=== PATIENT | female | born 1965 | race Caucasian/White ===

== ENCOUNTER 2016-11-30 11:35 | Emergency (ER) | payer OTHER ==
--- NOTE | 2016-11-30 11:44 | PDOC ---
History of Present Illness - General Chief Complaint: Respiratory Stated Complaint: COUGH, COLD SX Time Seen by Provider: 11/30/16 11:40 History Source: Patient Exam Limitations: No Limitations - History of Present Illness Initial Comments: 11/30/16 11:40 The patient is a 51-year-old female, with no significant past medical history, who presents to the emergency department with 3 days of dry cough, clear rhinorrhea, mild sore throat, subjective fever. She denies dyspnea on exertion , dyspnea at rest, orthopnea, lower extremity edema. She denies chest pain, back pain. She denies nausea, vomiting, diarrhea. Past History - Past Medical History Allergies/Adverse Reactions: Allergies Allergy/AdvReac Type Severity Reaction Status Date / Time No Known Allergies Allergy Unverified 11/30/16 11:41 Home Medications: Ambulatory Orders Benzonatate [Tessalon Pearls -] 100 mg PO TID PRN #21 capsule 11/30/16 Gabapentin 300 mg PO HS 11/30/16 Loratadine [Claritin -] 10 mg PO DAILY #7 tablet 11/30/16 Risedronate Sodium 35 mg PO WEEKLY 11/30/16 Review of Systems - Review of Systems Comments:: 11/30/16 11:41 CONSTITUTIONAL: Present: See history of present illness Absent: chills, fatigue EYES: Absent: visual changes ENT: Absent: ear pain, sore throat CARDIOVASCULAR: Absent: chest pain, palpitations, loss of consciousness RESPIRATORY: Present: Cough Absent: SOB GI: Absent: abdominal pain, nausea, vomiting, constipation, diarrhea GENITOURINARY: Absent: dysuria, frequency, hematuria MUSKULOSKELETAL: Absent: back pain, arthralgia, myalgia SKIN: Absent: rash NEURO: Absent: headache, dizziness *Physical Exam - Physical Exam Comments: 11/30/16 11:41 GENERAL: Well developed, well nourished. Awake and alert. No acute distress. HEENT: Normocephalic, atraumatic. PERRLA, EOMI. No conjunctival pallor. Sclera are non- icteric. Moist mucous membranes. Oropharynx is clear. NECK: Supple. Full ROM. No JVD. Carotid pulses 2+ and symmetric, without bruits. No thyromegaly. No lymphadenopathy. CARDIOVASCULAR: Regular rate and rhythm. No murmurs, rubs, or gallops. Distal pulses are 2+ and symmetric. PULMONARY: No evidence of respiratory distress. Lungs clear to auscultation bilaterally. No wheezing, rales or rhonchi. ABDOMINAL: Soft. Non-tender. Non-distended. No rebound or guarding. No organomegaly. Normoactive bowel sounds. MUSCULOSKELETAL Normal range of motion at all joints. No bony deformities or tenderness. No CVA tenderness. EXTREMITIES: No cyanosis. No clubbing. No edema. No calf tenderness. SKIN: Warm and dry. Normal capillary refill. No rashes. No jaundice. NEUROLOGICAL: Alert, awake, appropriate. Cranial nerves 2-12 intact. No deficits to light touch and temperature in face, upper extremities and lower extremities. No motor deficits in the in face, upper extremities and lower extremities. Normoreflexic in the upper and lower extremities. Normal speech. Toes are down- going bilaterally. Gait is normal without ataxia. PSYCHIATRIC: Cooperative. Good eye contact. Appropriate mood and affect. Medical Decision Making - Medical Decision Making 11/30/16 11:42 The patient is well-appearing and in no acute distress Vitals noted There is no clinical evidence of pneumonia She is outside the window for treatment with Tamiflu She does not have high risk factors for influenza Clinical impression: Upper respiratory tract infection Cough I discussed the physical exam findings, ancillary test results and final diagnoses with the patient. I answered all of the patient's questions. The patient was satisfied with the care received and felt comfortable with the discharge plan and treatment plan. The patient will call their primary care physician within 24 hours to arrange follow-up and will return to the Emergency Department with any new, persistent or worsening symptoms. *DC/Admit/Observation/Transfer Diagnosis at time of Disposition: Upper respiratory tract infection, Cough - Discharge Dispostion Disposition: HOME Condition at time of disposition: Stable - Prescriptions Prescriptions: Loratadine [Claritin -] 10 mg PO DAILY #7 tablet Benzonatate [Tessalon Pearls -] 100 mg PO TID PRN #21 capsule PRN Reason: Cough - Referrals Referrals: Jenaro Vargas MD [Primary Care Provider] - - Patient Instructions Printed Discharge Instructions: DI for Acute Bronchitis, DI for Cough -- Adult Additional Instructions: Return to the emergency department immediately with ANY new, persistent or worsening symptoms. You MUST call and follow up with your doctor tomorrow. Please make sure your doctor reviews the results of your emergency department evaluation.
[2016-11-30 12:00] VITALS: BP 135/88; PULSE 89; TEMP 97.4; BMI 22.2
== END 2016-11-30 12:00 | disposition home or self-care (01) ==
LOC: FER 11:35
DX: J06.9 Acute upper respiratory infection, unspecified (principal); R05 Cough
CPT/HCPCS: 99283-25

== ENCOUNTER 2021-01-23 04:12 | Day surgery (SDC) | payer OTHER ==
[2021-01-22 11:59] VITALS: BMI 18.4
[2021-01-23 10:22] VITALS: TEMP 97.6
[2021-01-23 11:28] LABS: POTASSIUM 4.9 mmol/L (3.5-5.1)
[2021-01-23 11:29] VITALS: BP 150/79; PULSE 63
[2021-01-23 11:30] LABS: BLOOD UREA NITROGEN 10.8 mg/dL (7-18); CALCIUM 9.2 mg/dL (8.5-10.1)
[2021-01-23 11:33] LABS: CREATININE 0.6 mg/dL (0.55-1.3)
== END 2021-01-23 11:24 | disposition home or self-care (01) ==
LOC: JASU-ENDO 04:12
PROVIDERS: ATTEND Internal Medicine Gastroenterology
PROC: 0DB78ZX Excision of Stomach, Pylorus, Via Natural or Artificial Opening Endoscopic, Diagnostic (ICD-10-PCS; principal; 2021-01-23 10:00)
DX: R68.81 Early satiety (principal); K29.50 Unspecified chronic gastritis without bleeding; K31.89 Other diseases of stomach and duodenum
CPT/HCPCS: 36415; 80048; 88305-TC; 88342-TC